=== PATIENT | female | born 1960 | race Hispanic/Latino ===

== ENCOUNTER 2024-08-26 15:08 | Observation (INO) | payer MEDICARE ==
[~2024-08-26] VITALS: Ht 165.1 cm; Wt 90.7 kg
[2024-08-26] MEDS ORDERED: DIAZEPAM INJ 5 MG/ML 2 ML ONE (15:11)
[2024-08-26] MEDS ORDERED: SODIUM CHLORIDE 0.9% 1000ML 1,000 ML ONE (15:11)
[2024-08-26] MEDS ORDERED: ONDANSETRON HCL INJ 2MG/ML 2ML 2 MG/ML VIAL ONE (15:11)
[2024-08-26 15:25] VITALS: TEMP 98.4
[2024-08-26] MEDS: ONDANSETRON HCL INJ 2MG/ML 2ML 2 MG/ML VIAL IV STA (15:44)
[2024-08-26] MEDS: SODIUM CHLORIDE 0.9% 1000ML 1,000 ML IV STA (15:44)
[2024-08-26] MEDS: DIAZEPAM INJ 5 MG/ML 2 ML IV ONE (15:45)
[2024-08-26 15:48] LABS: BASOPHILS % 0.5 % (0.0-1.0); EOSINOPHILS # (AUTO) 0.1 (0.0-0.4); EOSINOPHILS % 0.6 % (0.0-6.0); HEMATOCRIT 33.9 % (34.2-44.1); HEMOGLOBIN 10.4 g/dL (12.0-16.0); LYMPHOCYTES # (AUTO) 2.3 (1.0-3.2); LYMPHOCYTES % 28.6 % (18.0-39.1); MEAN CORPUSCULAR HEMOGLOBIN 21.3 pg (28-32); MEAN CORPUSCULAR HGB CONC 30.7 g/dL (31-35); MEAN CORPUSCULAR VOLUME 69.5 fL (81-99); MONOCYTES # (AUTO) 0.6 (0.2-0.8); MONOCYTES % 6.8 % (4.4-11.3); NEUTROPHILS # (AUTO) 5.1 (2.1-6.9); NEUTROPHILS % 63.1 % (38.7-80.0); PLATELET COUNT 413 x10e3/uL (140-360); RED BLOOD COUNT 4.88 x10e6/uL (3.6-5.1); RED CELL DISTRIBUTION WIDTH 17.2 % (11.7-14.4)
[2024-08-26 15:51] LABS: ALBUMIN 3.8 g/dL (3.5-5.0); ANION GAP 22.6 mmol/L (8-16); BILIRUBIN,TOTAL 0.5 mg/dL (0.2-1.2); CALCIUM 9.1 mg/dL (8.4-10.2); CREATININE, SERUM 0.81 mg/dL (0.57-1.11); MAGNESIUM 1.5 MG/DL (1.3-2.1); POTASSIUM 3.6 mmol/L (3.5-5.1); TOTAL PROTEIN 7.8 g/dL (6.5-8.1)
[2024-08-26 15:55] LABS: INR 0.97; PROTHROMBIN TIME 13.5 seconds (11.9-14.5)
[2024-08-26 15:56] LABS: PARTIAL THROMBOPLASTIN TIME 26.2 seconds (23.8-35.5)
[2024-08-26 15:57] LABS: TROPONIN I 0.027 ng/mL (0-0.300)
[2024-08-26 17:36] VITALS: PULSE 65; RESP 17
[2024-08-26] MEDS: MECLIZINE HCL 12.5 MG TAB PO ONE (17:58)
[2024-08-26] MEDS: Doxycycline IV 100 MG in SODIUM CHLORIDE 0.9% 100 ML IV SCH (18:44)
[2024-08-26 18:48] VITALS: PULSE 76; RESP 16; O2SAT 97
[2024-08-26 18:54] LABS: CLARITY,URINE CLEAR (CLEAR); COLOR,URINE STRAW (YELLOW)
[2024-08-26 18:55] LABS: BILIRUBIN,URINE NEGATIVE (NEGATIVE); GLUCOSE, URINE NEGATIVE (NEGATIVE); KETONES,URINE 1+ (NEGATIVE); LEUKOCYTE ESTERASE ,URINE NEGATIVE (NEGATIVE); NITRITE,URINE NEGATIVE (NEGATIVE); PH,URINE 7 (5 - 7); PROTEIN,URINE DIPSTICK NEGATIVE (NEGATIVE); URINE UROBILINOGEN 0.2 mg/dL (0.2 - 1)
[2024-08-26 18:59] LABS: BACTERIA,URINE RARE /HPF; RBC,URINE 0-5 /HPF (0-5); WBC,URINE (MAN) 0-5 /HPF (0-5)
[2024-08-26] MEDS ORDERED: ONDANSETRON HCL INJ 2MG/ML 2ML 2 MG/ML VIAL IV PRN (19:00)
[2024-08-26] MEDS ORDERED: MECLIZINE HCL 12.5 MG TAB PO PRN (19:00)
[2024-08-26] MEDS: SODIUM CHLORIDE 0.9% 1000ML 1,000 ML IV SCH (19:03)
[2024-08-26 19:07] LABS: ABG HCO3 22 mmol/L (22-26); ABG PCO2 40 mmHg (35-45); ABG PH 7.35 (7.35-7.45); ABG PO2 67 mmHg (80-105); ABG TCO2 24
[2024-08-26 21:00] VITALS: BP 136/76; PULSE 76; RESP 16; TEMP 99; O2SAT 97
[2024-08-26] MEDS: CRESTOR 10MG PO SCH (22:33)
[2024-08-26] MEDS: ANASTROZOLE 1 MG TAB PO SCH (22:33)
[2024-08-27] VITALS (7 sets, daily range): BP systolic 110–125; BP diastolic 53–70; PULSE 70–82; RESP 15–18; TEMP 97.5–98.8; O2SAT 96–99
[2024-08-27 05:21] LABS: BASOPHILS % 0.4 % (0.0-1.0); EOSINOPHILS # (AUTO) 0.1 (0.0-0.4); EOSINOPHILS % 0.6 % (0.0-6.0); HEMATOCRIT 32.2 % (34.2-44.1); HEMOGLOBIN 9.4 g/dL (12.0-16.0); LYMPHOCYTES # (AUTO) 1.9 (1.0-3.2); LYMPHOCYTES % 24.1 % (18.0-39.1); MEAN CORPUSCULAR HEMOGLOBIN 20.9 pg (28-32); MEAN CORPUSCULAR HGB CONC 29.2 g/dL (31-35); MEAN CORPUSCULAR VOLUME 71.6 fL (81-99); MONOCYTES # (AUTO) 0.8 (0.2-0.8); MONOCYTES % 10.5 % (4.4-11.3); NEUTROPHILS # (AUTO) 5.2 (2.1-6.9); NEUTROPHILS % 64.2 % (38.7-80.0); PLATELET COUNT 353 x10e3/uL (140-360); RED CELL DISTRIBUTION WIDTH 17.2 % (11.7-14.4); WHITE BLOOD COUNT 8.02 x10e3/uL (4.8-10.8)
[2024-08-27 05:48] LABS: ALBUMIN 3.2 g/dL (3.5-5.0); ALBUMIN/GLOBULIN RATIO 0.9 (0.8-2.0); BILIRUBIN,TOTAL 0.5 mg/dL (0.2-1.2); CALCIUM 8.7 mg/dL (8.4-10.2); CREATININE, SERUM 0.7 mg/dL (0.57-1.11); TOTAL PROTEIN 6.7 g/dL (6.5-8.1)
[2024-08-27 06:13] LABS: CREATINE KINASE 44 IU/L (29-168)
[2024-08-27 06:20] LABS: TROPONIN I < 0.001 ng/mL (0-0.300)
[2024-08-27] MEDS: INSULIN LISPRO 100 UNIT/1 ML 3ML VIAL SQ SCH (07:30)
[2024-08-27] MEDS ORDERED: MECLIZINE HCL 12.5 MG TAB PO PRN (10:45)
[2024-08-27] MEDS ORDERED: ALBUTEROL/IPRATROPIUM 3 ML NEB NEB PRN (11:00)
[2024-08-27] MEDS ORDERED: DOCUSATE SODIUM 100 MG CAP PO PRN (11:00)
[2024-08-27] MEDS ORDERED: MELATONIN 3 MG TAB PO PRN (11:00)
[2024-08-27] MEDS ORDERED: ACETAMINOPHEN 325 MG TAB PO PRN (11:00)
[2024-08-27] MEDS ORDERED: SIMETHICONE 80 MG CHEW PO PRN (11:00)
[2024-08-27 16:35] LABS: TROPONIN I 0.001 ng/mL (0-0.300)
[2024-08-27] MEDS ORDERED: MECLIZINE HCL12.5 MG PO (19:16)
[2024-08-27] MEDS ORDERED: BENZONATATE100 MG PO (19:16)
[2024-08-27] MEDS ORDERED: DOXYCYCLINE HY100 MG PO (19:16)
[2024-09-02 07:48] LABS: ABG HCO3 22 mmol/L (22-26); ABG PCO2 40 mmHg (35-45); ABG PH 7.35 (7.35-7.45); ABG PO2 67 mmHg (80-105); ABG TCO2 24
== END 2024-08-27 20:56 | disposition home or self-care (01) ==
LOC: ER 15:13 → INTOOBSV 18:54 → ERHOLD 18:54 → MED/SURG2 21:39
PROVIDERS: ADMIT Internal Medicine; ATTEND Internal Medicine
DX: J69.0 Pneumonitis due to inhalation of food and vomit (principal); H81.10 Benign paroxysmal vertigo, unspecified ear; J96.01 Acute respiratory failure with hypoxia; E11.9 Type 2 diabetes mellitus without complications; R94.31 Abnormal electrocardiogram [ECG] [EKG]; E66.9 Obesity, unspecified; Z68.33 Body mass index [BMI] 33.0-33.9, adult; Z85.3 Personal history of malignant neoplasm of breast; Z90.13 Acquired absence of bilateral breasts and nipples; Z79.899 Other long term (current) drug therapy
CPT/HCPCS: 36415 ×2; 36600; 70450; 71045 ×2; 74176; 80053 ×2; 81001; 82550 ×2; 82607; 82805; 82948; 83735; 83880; 84484 ×2; 85025 ×2; 85610; 85730; 87040; 87086; 93005; 94799 ×2; 97116; 97161; 99284; G0378 ×2; J2405; J2543 ×2; J3360; J7030 ×2; J7050 ×2